=== PATIENT | male | born 1980 | race Caucasian/White ===

== ENCOUNTER 2017-01-20 15:54 | Outpatient (CLI) | payer BC ==
--- NOTE | 2017-01-20 19:18 | MRI ---
EXAM: CERVICAL SPINE MRI WITHOUT CONTRAST 01/20/17 HISTORY: Cervical radiculopathy. COMPARISON: None. TECHNIQUE: Cervical spine MRI is performed without intravenous gadolinium administration. Multisequential, mult iplanar imaging is performed. FINDINGS: Appropriate T1 marrow signal intensity of the cervical vertebrae. Cervical spine vertebral body heig ht is maintained. No fracture. The visualized brain parenchyma, cervicomedullary junction, cervical cord, and the upper thoracic co rd have a normal size and signal intensity. C2-C3: No significant disc osteophyte complex. No significant central canal stenosis. Neural foramin a are patent. C3-C4: No significant disc osteophyte complex. No significant central canal stenosis. Right neural f oramen is patent. Moderate left foraminal narrowing due to degenerative change of the uncovertebral joint. C4-C5: No significant disc osteophyte complex. No significant central canal stenosis. Neural foramin a are patent bilaterally. There is slightly asymmetric degenerative change and hypertrophy of the ri ght facet. C5-C6: There is a broad based disc osteophyte complex that abuts the thecal sac. Ventral subarachno id space is still maintained. Minimal deformity of the cervical cord, without T2 hyperintensity in t he cord. Mild central canal stenosis. Degenerative changes in the right and left uncovertebral joint results in moderate to severe right and severe left foraminal narrowing. C6-C7: Broad based osteophyte complex abuts the thecal sac. Ventral subarachnoid space is maintained . There is mild to moderate central canal stenosis. No significant mass effect upon the cervical cor d. Degenerative changes in the bilateral uncovertebral joint result in moderate to severe right and severe left foraminal narrowing. C7-T1: No significant disc osteophyte complex. No significant central canal stenosis. Neural foramin a are patent bilaterally. IMPRESSION: Degenerative changes of the cervical spine as detailed above. POS: [facility]
== END 2017-01-20 15:55 | disposition home or self-care (01) ==
LOC: MRI 15:54
PROVIDERS: ATTEND Family Medicine
DX: M47.22 Other spondylosis with radiculopathy, cervical region (principal)
CPT/HCPCS: 72141

== ENCOUNTER 2019-05-02 10:27 | Outpatient (CLI) | payer BC ==
--- NOTE | 2019-05-02 11:04 | RAD ---
EXAM: XR Hip Lt 2-3 View PROVIDED CLINICAL HISTORY: Pain COMPARISON: None FINDINGS: There is no evidence for fracture. There is acetabular over coverage, which may predispose to femoral -acetabular impingement. Left hip joint space appears preserved. Alignment appears anatomic. 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
== END 2019-05-02 10:28 | disposition home or self-care (01) ==
LOC: BICRAD 10:27
PROVIDERS: ATTEND Family Medicine
DX: M25.552 Pain in left hip (principal)